=== PATIENT | male | born 1930 | race Caucasian/White ===

== ENCOUNTER 2016-12-07 18:31 | Emergency (ER) | payer MEDICARE, BC ==
[2016-12-07] MEDS: [UNRECOGNIZED DRUG - OTHER] TOP PRN (18:55)
[2016-12-07] MEDS: POTASSIUM NITRATE TOP PRN (18:55)
[2016-12-07 19:17] VITALS: BP 158/75; PULSE 105; RESP 20; TEMP 98.6; O2SAT 96
== END 2016-12-07 19:45 | DRG 151 ==
LOC: ED 18:31
DX: R04.0 Epistaxis (principal)
CPT/HCPCS: 30901; 99282

== ENCOUNTER 2017-07-13 18:01 | Emergency (ER) | payer MEDICARE ==
[2017-07-13 18:12] VITALS: TEMP 97.7
[2017-07-13] MEDS ORDERED: SODIUM CHLORIDE 0.9% 1000ML 1,000 ML IV ONE (18:32)
[2017-07-13 18:49] LABS: CALCIUM 8.7 mg/dl (8.5-10.1); POTASSIUM 4.1 mMol/L (3.5-5.1)
[2017-07-13 18:50] LABS: BASOPHILS % (AUTO) 1 % (0-3); EOSINOPHILS % (AUTO) 1 % (0-9); HEMATOCRIT 37 % (39-53); MEAN CORPUSCULAR HGB CONC 36.5 gm/dl (32.0-36.0); MEAN CORPUSCULAR VOLUME 92 fL (80-100); MONOCYTES % (AUTO) 8.4 % (0-12); NEUTROPHILS % (AUTO) 70.5 % (37-80)
[2017-07-13 20:37] VITALS: BP 122/67; PULSE 67; RESP 22; O2SAT 99
== END 2017-07-13 19:55 | DRG 605 ==
LOC: ED 18:01
DX: S00.03XA Contusion of scalp, initial encounter (principal); G44.219 Episodic tension-type headache, not intractable; W06.XXXA Fall from bed, initial encounter
CPT/HCPCS: 70450; 72125; 80048; 85025; 85610; 99284

== ENCOUNTER 2017-08-29 13:19 | Emergency (ER) | payer MEDICARE, OTHER ==
[2017-08-29 13:36] VITALS: TEMP 97
[2017-08-29] MEDS ORDERED: SODIUM CHLORIDE 0.9% 1000ML 1,000 ML IV ONE (14:01)
[2017-08-29 14:38] LABS: BASOPHILS % (AUTO) 1 % (0-3); EOSINOPHILS % (AUTO) 2 % (0-9); HEMATOCRIT 32 % (39-53); MEAN CORPUSCULAR HGB CONC 34.4 gm/dl (32.0-36.0); MONOCYTES % (AUTO) 9.5 % (0-12); NEUTROPHILS % (AUTO) 72.8 % (37-80)
[2017-08-29] MEDS ORDERED: SODIUM CHLORIDE 0.9% FLUSH 10 ML SOL IV PRN (14:43)
[2017-08-29 14:44] LABS: ALBUMIN 3.1 gm/dl (3.4-5.0); CALCIUM 8.9 mg/dl (8.5-10.1)
[2017-08-29 14:54] LABS: POTASSIUM 4.6 mMol/L (3.5-5.1)
[2017-08-29 14:56] LABS: MEAN CORPUSCULAR VOLUME 99 fL (80-100)
[2017-08-29 14:57] LABS: ANISOCYTOSIS SLIGHT AMT
[2017-08-29 15:57] LABS: APPEARANCE,URINE Cloudy; BILIRUBIN,URINE NEGATIVE (NEGATIVE); COLOR,URINE Yellow; GLUCOSE, URINE (UA) NEGATIVE (NEGATIVE); KETONES,URINE TRACE (NEGATIVE); LEUKOCYTE ESTERASE ,URINE 3+ (NEGATIVE); NITRATE,URINE NEGATIVE (NEGATIVE); OCCULT BLOOD,URINE TRACE INTACT (NEG-TRACE); UROBILINOGEN,URINE 0.2 (0.2-1.0 EU)
[2017-08-29 16:45] VITALS: RESP 20; O2SAT 95
[2017-08-29 16:51] LABS: WBC,URINE 90-100 (0-5AV/HPF)
[2017-08-29 17:41] VITALS: BP 113/66; PULSE 112
== END 2017-08-29 16:41 | disposition short-term general hospital (02) | DRG 309 ==
LOC: ED 13:19
DX: I49.5 Sick sinus syndrome (principal); J81.1 Chronic pulmonary edema; R04.0 Epistaxis
CPT/HCPCS: 36415; 71010; 80053; 81001; 85025; 87077; 87088; 87186; 93005; 99285

== ENCOUNTER 2017-09-13 18:52 | Emergency (ER) | payer MEDICARE, OTHER ==
[2017-09-13 19:02] VITALS: TEMP 97.4
[2017-09-13] MEDS ORDERED: ALBUTEROL/IPRATROPIUM 1 VIAL SOL INH ONE (19:17)
[2017-09-13] MEDS ORDERED: ALBUTEROL/IPRATROPIUM 1 VIAL SOL ONE (19:19)
[2017-09-13 19:31] LABS: BASOPHILS % (AUTO) 1 % (0-3); EOSINOPHILS % (AUTO) 1 % (0-9); HEMATOCRIT 26 % (39-53); MEAN CORPUSCULAR HGB CONC 34.7 gm/dl (32.0-36.0); MONOCYTES % (AUTO) 6.6 % (0-12)
[2017-09-13 19:39] LABS: CALCIUM 8.8 mg/dl (8.5-10.1); POTASSIUM 4.5 mMol/L (3.5-5.1)
[2017-09-13 19:41] LABS: MEAN CORPUSCULAR VOLUME 99 fL (80-100)
[2017-09-13 19:53] LABS: ABG PH 7.43 (7.35-7.45)
[2017-09-13 20:02] LABS: ANISOCYTOSIS SLIGHT AMT
[2017-09-13] MEDS ORDERED: LEVOFLOXACIN 25 MG/ML 750 MG in SODIUM CHLORIDE 0.9% 250 ML 150 ML IV ONE (20:10)
[2017-09-13] MEDS ORDERED: LEVOFLOXACIN 25 MG/ML SOL IV ONE (20:11)
[2017-09-13 22:16] VITALS: BP 108/47; PULSE 132; RESP 22; O2SAT 91
== END 2017-09-13 21:47 | disposition short-term general hospital (02) | DRG 206 ==
LOC: ED 18:52
DX: R09.02 Hypoxemia (principal); J84.9 Interstitial pulmonary disease, unspecified; R79.89 Other specified abnormal findings of blood chemistry; R93.1 Abnormal findings on diagnostic imaging of heart and coronary circulation; R05 Cough; I48.91 Unspecified atrial fibrillation
CPT/HCPCS: 71010; 80048; 82803; 85025; 87430; 87804; 99291; J1956; J7620

== ENCOUNTER 2017-09-23 07:54 | Emergency (ER) | payer MEDICARE, OTHER ==
[2017-09-23] MEDS: SODIUM CHLORIDE 0.9% FLUSH 10 ML SOL IV PRN ×2 (08:02→08:18)
[2017-09-23 08:17] LABS: BASOPHILS % (AUTO) 1 % (0-3); EOSINOPHILS % (AUTO) 0 % (0-9); HEMATOCRIT 30 % (39-53); MEAN CORPUSCULAR HGB CONC 35.4 gm/dl (32.0-36.0); MEAN CORPUSCULAR VOLUME 95 fL (80-100); MONOCYTES % (AUTO) 10.2 % (0-12); NEUTROPHILS % (AUTO) 82.5 % (37-80)
[2017-09-23 08:33] LABS: CALCIUM 8.8 mg/dl (8.5-10.1); POTASSIUM 3.4 mMol/L (3.5-5.1)
[2017-09-23] MEDS ORDERED: DEXTROSE 50% 1 VIAL SOL IV ONE ×2 (08:41)
[2017-09-23 08:44] LABS: APPEARANCE,URINE Clear; BILIRUBIN,URINE NEGATIVE (NEGATIVE); COLOR,URINE Yellow; GLUCOSE, URINE (UA) NEGATIVE (NEGATIVE); KETONES,URINE NEGATIVE (NEGATIVE); LEUKOCYTE ESTERASE ,URINE NEGATIVE (NEGATIVE); NITRATE,URINE NEGATIVE (NEGATIVE); OCCULT BLOOD,URINE TRACE INTACT (NEG-TRACE); PH,URINE 5.5; UROBILINOGEN,URINE 0.2 (0.2-1.0 EU)
[2017-09-23 08:45] LABS: ABG PH 7.41 (7.35-7.45)
[2017-09-23] MEDS ORDERED: ALTEPLASE, RECOMBINANT 50 MG PDS IV ONE ×3 (08:49→09:03)
[2017-09-23 08:59] LABS: RBC,URINE 0-2 (0-3AV/HPF); WBC,URINE 0-2 (0-5AV/HPF)
[2017-09-23] MEDS ORDERED: ETOMIDATE 2 MG/ML SOL IV ONE (09:00)
[2017-09-23] MEDS ORDERED: ROCURONIUM BROMIDE 10 MG/ML SOL IV ONE (09:00)
[2017-09-23] MEDS ORDERED: SODIUM CHLORIDE 0.9% 50 ML 50 ML IV SCH (09:15)
[2017-09-23 10:16] VITALS: PULSE 102; RESP 20; O2SAT 96
[2017-09-23 10:27] VITALS: BP 113/51; TEMP 95.9
== END 2017-09-23 09:45 | disposition short-term general hospital (02) | DRG 64 ==
LOC: ED 07:54
DX: I63.9 Cerebral infarction, unspecified (principal); R40.2342 Coma scale, best motor response, flexion withdrawal, at arrival to emergency department; R40.2122 Coma scale, eyes open, to pain, at arrival to emergency department; R40.2222 Coma scale, best verbal response, incomprehensible words, at arrival to emergency department; G81.91 Hemiplegia, unspecified affecting right dominant side; R47.01 Aphasia; H53.469 Homonymous bilateral field defects, unspecified side; R29.722 NIHSS score 22
CPT/HCPCS: 36415; 36600; 70450; 80048; 81001; 82803; 85025; 85610; 85730; 93005; 99291; J2997

== ENCOUNTER 2017-10-12 18:45 | Inpatient (IN) | payer MEDICARE, OTHER ==
[2017-10-12] MEDS: SODIUM CHLORIDE 0.9% FLUSH 10 ML SOL IV PRN (19:15)
[2017-10-12 19:24] LABS: BASOPHILS % (AUTO) 2 % (0-3); EOSINOPHILS % (AUTO) 0 % (0-9); HEMATOCRIT 27 % (39-53); MEAN CORPUSCULAR HGB CONC 34.2 gm/dl (32.0-36.0); MEAN CORPUSCULAR VOLUME 94 fL (80-100); MONOCYTES % (AUTO) 8.1 % (0-12); NEUTROPHILS % (AUTO) 77.6 % (37-80)
[2017-10-12 19:28] LABS: CALCIUM 8.2 mg/dl (8.5-10.1)
[2017-10-12] MEDS ORDERED: VANCOMYCIN HYDROCHLORIDE 500 MG PDS IV ONE (19:30)
[2017-10-12] MEDS ORDERED: VANCOMYCIN HCL 500 MG PDS 1,000 MG in SODIUM CHLORIDE 0.9% 250 ML 250 ML IV ONE (19:30)
[2017-10-12] MEDS ORDERED: PIPERACILLIN/TAZOBACT 3.375 GM PDS IV ONE (19:32)
[2017-10-12] MEDS ORDERED: ALUMINUM/MAGNESIUM 30 ML SUS PO PRN (20:28)
[2017-10-12] MEDS ORDERED: DM/GUAIFENESIN SYRUP 10 ML SYRP PO PRN (20:28)
[2017-10-12] MEDS: PIPERACILLIN/TAZOBACT 3.375 GM 3.375 GM in SODIUM CHLORIDE 0.9% 100 ML 100 ML IV SCH (21:13)
[2017-10-12] MEDS: GABAPENTIN 300 MG CAP PO SCH (21:22)
[2017-10-12] MEDS: LISINOPRIL 20 MG TAB PO SCH (21:22)
[2017-10-13] MEDS ORDERED: SODIUM CHLORIDE 0.9% 100 ML 100 ML IV ONE ×2 (03:17→22:37)
[2017-10-13] MEDS ORDERED: PIPERACILLIN/TAZOBACT 3.375 GM PDS IV ONE ×4 (03:17→22:37)
[2017-10-13] MEDS: PIPERACILLIN/TAZOBACT 3.375 GM 3.375 GM in SODIUM CHLORIDE 0.9% 100 ML 100 ML IV SCH ×3 (03:28→17:25)
[2017-10-13] MEDS: SODIUM CHLORIDE 0.9% FLUSH 10 ML SOL IV PRN ×3 (03:30→18:37)
[2017-10-13] MEDS: ACETAMINOPHEN 500 MG 500 MG TAB PO PRN ×2 (04:26→18:47)
[2017-10-13] MEDS: PANTOPRAZOLE SODIUM 40 MG ECT PO SCH (06:45)
[2017-10-13] MEDS ORDERED: OMEPRAZOLE 20 MG CAPSULE PO SCH (07:00)
[2017-10-13] MEDS ORDERED: VANCOMYCIN HCL 500 MG PDS 1,000 MG in SODIUM CHLORIDE 0.9% 250 ML 250 ML IV SCH (08:45)
[2017-10-13] MEDS ORDERED: PHARMACOKINETICS 1 MISC PRN (08:46)
[2017-10-13] MEDS ORDERED: ACETAMINOPHEN 500 MG 500 MG TAB PO SCH (09:00)
[2017-10-13] MEDS ORDERED: FUROSEMIDE 20 MG TAB PO SCH (09:00)
[2017-10-13 09:25] LABS: CALCIUM 7.6 mg/dl (8.5-10.1); POTASSIUM 4.1 mMol/L (3.5-5.1)
[2017-10-13] MEDS ORDERED: VANCOMYCIN HYDROCHLORIDE 500 MG PDS IV ONE (09:44)
[2017-10-13] MEDS: DILTIAZEM ER 120 MG C24 PO SCH (09:46)
[2017-10-13] MEDS: MULTIVITAMIN2 1 EA TAB PO SCH (09:46)
[2017-10-13] MEDS: FUROSEMIDE 40 MG TAB PO SCH (09:46)
[2017-10-13] MEDS: GABAPENTIN 300 MG CAP PO SCH ×3 (09:46→21:57)
[2017-10-13] MEDS: CALCIUM CARBONATE 500 MG TAB PO SCH ×2 (09:46→21:57)
[2017-10-13] MEDS: ASCORBIC ACID 500 MG TAB PO SCH (09:46)
[2017-10-13] MEDS: FERROUS SULFATE 325 MG TAB PO SCH (09:47)
[2017-10-13] MEDS: CHOLECALCIFEROL 1,000 IU TAB PO SCH (09:47)
[2017-10-13] MEDS: GLIMEPIRIDE 2 MG TAB PO SCH (09:47)
[2017-10-13] MEDS: PSYLLIUM 3.6 GM/1 TBS PDR PO SCH (09:48)
[2017-10-13] MEDS: FLUTICASONE PROPIONATE SPR NAS SCH ×2 (09:48→21:56)
[2017-10-13] MEDS: DOCUSATE SODIUM 100 MG SGL PO SCH (09:52)
[2017-10-13] MEDS: ENOXAPARIN 40 MG SOL SC SCH (09:52)
[2017-10-13] MEDS: BUPROPION XL 300 MG T24 PO SCH (12:18)
[2017-10-13] MEDS ORDERED: TRAMADOL HYDROCHLORIDE 50 MG TAB ONE (14:39)
[2017-10-13] MEDS: METOPROLOL SUCCINATE 50 MG ER TAB PO SCH (17:58)
[2017-10-13] MEDS: PIPERACILLIN/TAZOBACT 3.375 GM 2.25 GM in SODIUM CHLORIDE 0.9% 100 ML 100 ML IV SCH ×2 (18:30→23:17)
[2017-10-13] MEDS: LISINOPRIL 20 MG TAB PO SCH (21:58)
[2017-10-14] MEDS: ACETAMINOPHEN 500 MG 500 MG TAB PO PRN (02:50)
[2017-10-14] MEDS ORDERED: PIPERACILLIN/TAZOBACT 3.375 GM PDS IV ONE ×4 (04:54→19:30)
[2017-10-14] MEDS: PIPERACILLIN/TAZOBACT 3.375 GM 2.25 GM in SODIUM CHLORIDE 0.9% 100 ML 100 ML IV SCH ×3 (05:10→19:39)
[2017-10-14] MEDS: SODIUM CHLORIDE 0.9% FLUSH 10 ML SOL IV PRN (05:10)
[2017-10-14] MEDS: PANTOPRAZOLE SODIUM 40 MG ECT PO SCH (06:27)
[2017-10-14 07:17] LABS: CALCIUM 7.6 mg/dl (8.5-10.1); POTASSIUM 3.5 mMol/L (3.5-5.1)
[2017-10-14 07:27] LABS: BASOPHILS % (AUTO) 1 % (0-3); EOSINOPHILS % (AUTO) 1 % (0-9); HEMATOCRIT 24 % (39-53); MEAN CORPUSCULAR HGB CONC 35.7 gm/dl (32.0-36.0); MEAN CORPUSCULAR VOLUME 91 fL (80-100); MONOCYTES % (AUTO) 7.3 % (0-12); NEUTROPHILS % (AUTO) 81.5 % (37-80)
[2017-10-14] MEDS: FLUTICASONE PROPIONATE SPR NAS SCH ×2 (09:55→20:25)
[2017-10-14] MEDS: GLIMEPIRIDE 2 MG TAB PO SCH (09:55)
[2017-10-14] MEDS: CALCIUM CARBONATE 500 MG TAB PO SCH ×2 (09:56→20:25)
[2017-10-14] MEDS: PSYLLIUM 3.6 GM/1 TBS PDR PO SCH (09:56)
[2017-10-14] MEDS: ASCORBIC ACID 500 MG TAB PO SCH (09:56)
[2017-10-14] MEDS: MULTIVITAMIN2 1 EA TAB PO SCH (09:56)
[2017-10-14] MEDS: GABAPENTIN 300 MG CAP PO SCH ×3 (09:56→20:25)
[2017-10-14] MEDS: CHOLECALCIFEROL 1,000 IU TAB PO SCH (09:56)
[2017-10-14] MEDS: DILTIAZEM ER 120 MG C24 PO SCH (09:57)
[2017-10-14] MEDS: FERROUS SULFATE 325 MG TAB PO SCH (09:57)
[2017-10-14] MEDS: BUPROPION XL 300 MG T24 PO SCH (09:57)
[2017-10-14] MEDS ORDERED: VANCOMYCIN HCL 500 MG PDS 1,500 MG in SODIUM CHLORIDE 0.9% 250 ML 250 ML IV SCH (10:00)
[2017-10-14] MEDS: ENOXAPARIN 40 MG SOL SC SCH (10:03)
[2017-10-14] MEDS: FUROSEMIDE 40 MG TAB PO SCH (10:03)
[2017-10-14] MEDS: DOCUSATE SODIUM 100 MG SGL PO SCH (10:03)
[2017-10-14] MEDS ORDERED: VANCOMYCIN HYDROCHLORIDE 500 MG PDS IV ONE (10:54)
[2017-10-14] MEDS ORDERED: SODIUM CHLORIDE 0.9% 250 ML 250 ML IV ONE (10:54)
[2017-10-14] MEDS ORDERED: SODIUM CHLORIDE 0.9% 100 ML 100 ML IV ONE ×3 (12:43→19:32)
[2017-10-14] MEDS: METOPROLOL SUCCINATE 50 MG ER TAB PO SCH (17:14)
[2017-10-14] MEDS: LISINOPRIL 20 MG TAB PO SCH (20:25)
[2017-10-15] MEDS ORDERED: PIPERACILLIN/TAZOBACT 3.375 GM PDS IV ONE ×2 (00:43→06:22)
[2017-10-15] MEDS ORDERED: SODIUM CHLORIDE 0.9% 100 ML 100 ML IV ONE ×2 (00:43→06:22)
[2017-10-15] MEDS: PIPERACILLIN/TAZOBACT 3.375 GM 2.25 GM in SODIUM CHLORIDE 0.9% 100 ML 100 ML IV SCH ×2 (01:01→06:40)
[2017-10-15] MEDS: ACETAMINOPHEN 500 MG 500 MG TAB PO PRN ×2 (02:14→12:25)
[2017-10-15] MEDS: PANTOPRAZOLE SODIUM 40 MG ECT PO SCH (06:36)
[2017-10-15] MEDS: SODIUM CHLORIDE 0.9% FLUSH 10 ML SOL IV PRN (06:37)
[2017-10-15 07:20] LABS: BASOPHILS % (AUTO) 1 % (0-3); EOSINOPHILS % (AUTO) 0 % (0-9); HEMATOCRIT 24 % (39-53); MEAN CORPUSCULAR HGB CONC 34.5 gm/dl (32.0-36.0); MEAN CORPUSCULAR VOLUME 92 fL (80-100); MONOCYTES % (AUTO) 8.9 % (0-12); NEUTROPHILS % (AUTO) 78.1 % (37-80)
[2017-10-15 07:38] LABS: ALBUMIN 2.4 gm/dl (3.4-5.0); CALCIUM 7.9 mg/dl (8.5-10.1); POTASSIUM 3.6 mMol/L (3.5-5.1)
[2017-10-15 09:33] VITALS: RESP 18
[2017-10-15] MEDS: GLIMEPIRIDE 2 MG TAB PO SCH (10:04)
[2017-10-15] MEDS: FUROSEMIDE 40 MG TAB PO SCH (10:05)
[2017-10-15] MEDS: FLUTICASONE PROPIONATE SPR NAS SCH ×2 (10:05→20:36)
[2017-10-15] MEDS: LEVOFLOXACIN 500 MG TAB PO SCH (10:06)
[2017-10-15] MEDS: CALCIUM CARBONATE 500 MG TAB PO SCH ×2 (10:07→20:35)
[2017-10-15] MEDS: CHOLECALCIFEROL 1,000 IU TAB PO SCH (10:07)
[2017-10-15] MEDS: DILTIAZEM ER 120 MG C24 PO SCH (10:07)
[2017-10-15] MEDS: GABAPENTIN 300 MG CAP PO SCH ×3 (10:08→20:36)
[2017-10-15] MEDS: PSYLLIUM 3.6 GM/1 TBS PDR PO SCH (10:08)
[2017-10-15] MEDS: MULTIVITAMIN2 1 EA TAB PO SCH (10:08)
[2017-10-15] MEDS: DOCUSATE SODIUM 100 MG SGL PO SCH (10:08)
[2017-10-15] MEDS: FERROUS SULFATE 325 MG TAB PO SCH (10:08)
[2017-10-15] MEDS: ENOXAPARIN 40 MG SOL SC SCH (10:09)
[2017-10-15] MEDS: ASCORBIC ACID 500 MG TAB PO SCH (10:09)
[2017-10-15] MEDS: BUPROPION XL 300 MG T24 PO SCH (10:10)
[2017-10-15] MEDS: APAP/HYDROCODONE 325/5 TAB PO PRN ×2 (14:19→20:36)
[2017-10-15] MEDS: METOPROLOL SUCCINATE 50 MG ER TAB PO SCH (16:39)
[2017-10-15] MEDS: LISINOPRIL 20 MG TAB PO SCH (20:38)
[2017-10-16] MEDS: PANTOPRAZOLE SODIUM 40 MG ECT PO SCH (06:13)
[2017-10-16 07:57] LABS: BASOPHILS % (AUTO) 1 % (0-3); EOSINOPHILS % (AUTO) 1 % (0-9); HEMATOCRIT 25 % (39-53); MEAN CORPUSCULAR VOLUME 92 fL (80-100); MONOCYTES % (AUTO) 9.7 % (0-12); NEUTROPHILS % (AUTO) 80.9 % (37-80)
[2017-10-16 08:19] LABS: CALCIUM 8.3 mg/dl (8.5-10.1); POTASSIUM 3.8 mMol/L (3.5-5.1)
[2017-10-16] MEDS: GLIMEPIRIDE 2 MG TAB PO SCH (09:14)
[2017-10-16] MEDS: ENOXAPARIN 40 MG SOL SC SCH (09:24)
[2017-10-16] MEDS: DOCUSATE SODIUM 100 MG SGL PO SCH (09:27)
[2017-10-16] MEDS: FERROUS SULFATE 325 MG TAB PO SCH (09:27)
[2017-10-16] MEDS: DILTIAZEM ER 120 MG C24 PO SCH (09:27)
[2017-10-16] MEDS: FLUTICASONE PROPIONATE SPR NAS SCH (09:27)
[2017-10-16] MEDS: FUROSEMIDE 40 MG TAB PO SCH (09:28)
[2017-10-16] MEDS: PSYLLIUM 3.6 GM/1 TBS PDR PO SCH (09:29)
[2017-10-16] MEDS: MULTIVITAMIN2 1 EA TAB PO SCH (09:31)
[2017-10-16] MEDS: GABAPENTIN 300 MG CAP PO SCH (09:31)
[2017-10-16] MEDS: CALCIUM CARBONATE 500 MG TAB PO SCH (09:31)
[2017-10-16] MEDS: ASCORBIC ACID 500 MG TAB PO SCH (09:32)
[2017-10-16] MEDS: CHOLECALCIFEROL 1,000 IU TAB PO SCH (09:32)
[2017-10-16] MEDS: BUPROPION XL 300 MG T24 PO SCH (09:32)
[2017-10-16] MEDS: LEVOFLOXACIN 500 MG TAB PO SCH (09:32)
[2017-10-16] MEDS: APAP/HYDROCODONE 325/5 TAB PO PRN (09:33)
[2017-10-16 10:25] VITALS: BP 120/70; PULSE 104; TEMP 98.1; O2SAT 93
[2017-10-16 14:56] LABS: ABO O; RH TYPE Positive
[2017-10-17 08:16] LABS: ANTIBODY SCREEN Positive
[2017-10-17 08:17] LABS: UNIT TYPE O POSITIVE
== END 2017-10-16 12:25 | DRG 603 ==
LOC: ED 18:45 → UNDOADMIN 20:20 → ACUTE CARE 20:20
PROVIDERS: ADMIT Family Medicine; ATTEND Family Medicine
DX: L03.116 Cellulitis of left lower limb (principal); I96 Gangrene, not elsewhere classified; E11.621 Type 2 diabetes mellitus with foot ulcer; E11.22 Type 2 diabetes mellitus with diabetic chronic kidney disease; L97.311 Non-pressure chronic ulcer of right ankle limited to breakdown of skin; N18.3 Chronic kidney disease, stage 3 (moderate); L97.321 Non-pressure chronic ulcer of left ankle limited to breakdown of skin; L97.429 Non-pressure chronic ulcer of left heel and midfoot with unspecified severity; E11.52 Type 2 diabetes mellitus with diabetic peripheral angiopathy with gangrene; L97.821 Non-pressure chronic ulcer of other part of left lower leg limited to breakdown of skin; L97.412 Non-pressure chronic ulcer of right heel and midfoot with fat layer exposed; L97.521 Non-pressure chronic ulcer of other part of left foot limited to breakdown of skin; L84 Corns and callosities; L97.529 Non-pressure chronic ulcer of other part of left foot with unspecified severity; I77.89 Other specified disorders of arteries and arterioles; I73.9 Peripheral vascular disease, unspecified
CPT/HCPCS: 36415; 75635; 80048; 80053; 82962; 85025; 86850; 86900; 86901; 86922; 96365; 97597; 99070; 99221; 99232; 99284; J1650; J2543; J3370; Q9967; A4450; A6232; A6402; A9270; A9270-GY; Q4137

== ENCOUNTER 2017-11-02 16:00 | Emergency (ER) | payer MEDICARE, OTHER ==
[2017-11-02 16:28] LABS: BASOPHILS % (AUTO) 2 % (0-3); EOSINOPHILS % (AUTO) 0 % (0-9); HEMATOCRIT 23 % (39-53); MEAN CORPUSCULAR HGB CONC 34.1 gm/dl (32.0-36.0); MEAN CORPUSCULAR VOLUME 87 fL (80-100); MONOCYTES % (AUTO) 10.1 % (0-12); NEUTROPHILS % (AUTO) 73.1 % (37-80)
[2017-11-02 16:29] VITALS: RESP 20
[2017-11-02 16:37] LABS: CALCIUM 7.5 mg/dl (8.5-10.1); POTASSIUM 3.7 mMol/L (3.5-5.1)
[2017-11-02] MEDS ORDERED: HYDROMORPHONE HYDROCHLORIDE 2 MG TAB PO ONE ×2 (16:39→16:45)
[2017-11-02 16:56] VITALS: TEMP 97.6
[2017-11-02 17:27] VITALS: BP 132/74; PULSE 123; O2SAT 88
== END 2017-11-02 17:22 | DRG 556 ==
LOC: ED 16:00
DX: M79.89 Other specified soft tissue disorders (principal); D64.9 Anemia, unspecified; Z89.612 Acquired absence of left leg above knee; R20.0 Anesthesia of skin
CPT/HCPCS: 36415; 80048; 85025; 99282; 99283; A9270-GY

== ENCOUNTER 2017-12-20 17:32 | Emergency (ER) | payer MEDICARE, OTHER ==
[2017-12-20 17:53] VITALS: TEMP 95.2
[2017-12-20] MEDS ORDERED: NOREPINEPHRINE BITARTRATE 4 MG/4 ML SOL IV ONE (18:10)
[2017-12-20] MEDS ORDERED: NOREPINEPHRINE 4 MG/4 ML 4 MG in DEXTROSE 500 ML 500 ML IV SCH (18:15)
[2017-12-20] MEDS ORDERED: SODIUM CHLORIDE 0.9% FLUSH 10 ML SOL IV PRN (18:17)
[2017-12-20 18:21] LABS: BASOPHILS % (AUTO) 3 % (0-3); EOSINOPHILS % (AUTO) 0 % (0-9); HEMATOCRIT 26 % (39-53); MEAN CORPUSCULAR HGB CONC 35.1 gm/dl (32.0-36.0); MEAN CORPUSCULAR VOLUME 85 fL (80-100); MONOCYTES % (AUTO) 7.1 % (0-12); NEUTROPHILS % (AUTO) 81.7 % (37-80)
[2017-12-20 18:30] LABS: CALCIUM 7.9 mg/dl (8.5-10.1); CREATININE 1.35 mg/dl (0.80-1.30); POTASSIUM 3.1 mMol/L (3.5-5.1)
[2017-12-20] MEDS ORDERED: DEXTROSE 50% 1 VIAL SOL IV ONE ×2 (18:31→18:36)
[2017-12-20 18:35] VITALS: BP 133/71; PULSE 90; RESP 21; O2SAT 96
[2017-12-20] MEDS ORDERED: HEPARIN SODIUM 5000 U/ML SOL ONE ×2 (18:37→18:41)
[2017-12-20] MEDS ORDERED: HEPARIN SODIUM 5000 U/ML 25,000 U in DEXTROSE 250 ML 250 ML IV PRN (18:37)
[2017-12-20 18:39] LABS: APPEARANCE,URINE Slightly Cloudy; BILIRUBIN,URINE NEGATIVE (NEGATIVE); COLOR,URINE Yellow; GLUCOSE, URINE (UA) NEGATIVE (NEGATIVE); KETONES,URINE NEGATIVE (NEGATIVE); LEUKOCYTE ESTERASE ,URINE 3+ (NEGATIVE); NITRATE,URINE NEGATIVE (NEGATIVE); OCCULT BLOOD,URINE 1+ (NEG-TRACE); UROBILINOGEN,URINE 0.2 (0.2-1.0 EU)
[2017-12-20 18:45] LABS: RBC,URINE 0-2 (0-3AV/HPF); WBC,URINE TNTC (0-5AV/HPF)
== END 2017-12-20 18:45 | disposition short-term general hospital (02) | DRG 66 ==
LOC: ED 17:32
DX: I63.9 Cerebral infarction, unspecified (principal); I48.91 Unspecified atrial fibrillation; E11.9 Type 2 diabetes mellitus without complications; F03.90 Unspecified dementia, unspecified severity, without behavioral disturbance, psychotic disturbance, mood disturbance, and anxiety; F91.8 Other conduct disorders; R47.81 Slurred speech; R29.705 NIHSS score 5; R40.2362 Coma scale, best motor response, obeys commands, at arrival to emergency department; R40.2142 Coma scale, eyes open, spontaneous, at arrival to emergency department; R40.2242 Coma scale, best verbal response, confused conversation, at arrival to emergency department; F31.9 Bipolar disorder, unspecified
CPT/HCPCS: 36415; 70450; 80048; 81001; 82962; 85025; 85610; 85730; 99291; J1644; J3490

== ENCOUNTER 2017-12-26 16:01 | Emergency (ER) | payer MEDICARE, OTHER ==
[2017-12-26 16:20] VITALS: RESP 18; TEMP 97.2
[2017-12-26 16:48] LABS: BASOPHILS % (AUTO) 1 % (0-3); EOSINOPHILS % (AUTO) 0 % (0-9); HEMATOCRIT 23 % (39-53); LYMPHOCYTES % (AUTO) 8.25 % (10-50); MEAN CORPUSCULAR HEMOGLOBIN 29.3 pg (27.0-32.0); MEAN CORPUSCULAR HGB CONC 34.4 gm/dl (32.0-36.0); MEAN CORPUSCULAR VOLUME 85 fL (80-100); MONOCYTES % (AUTO) 8.2 % (0-12); NEUTROPHILS % (AUTO) 82.3 % (37-80)
[2017-12-26 17:06] LABS: ALBUMIN 2.1 gm/dl (3.4-5.0); ALKALINE PHOSPHATASE 105 IU/L (46-116); ALT 36 IU/L (14-63); AST 19 IU/L (15-37); BILIRUBIN,TOTAL 0.3 mg/dl (0.2-1.0); BLOOD UREA NITROGEN 23 mg/dl (7-18); CALCIUM 7.8 mg/dl (8.5-10.1); CARBON DIOXIDE 27.9 mEq/L (21-32); CHLORIDE 94 mMol/L (98-107); GLUCOSE 196 mg/dl (74-106); POTASSIUM 4.1 mMol/L (3.5-5.1); SODIUM 131 mMol/L (136-145); TOTAL PROTEIN 6.6 gm/dl (6.4-8.2); TROP I < 0.017 ng/ml (0.000-0.056)
[2017-12-26 17:42] LABS: APPEARANCE,URINE Clear; BILIRUBIN,URINE NEGATIVE (NEGATIVE); COLOR,URINE Yellow; GLUCOSE, URINE (UA) NEGATIVE (NEGATIVE); KETONES,URINE NEGATIVE (NEGATIVE); LEUKOCYTE ESTERASE ,URINE NEGATIVE (NEGATIVE); NITRATE,URINE NEGATIVE (NEGATIVE); OCCULT BLOOD,URINE NEGATIVE (NEG-TRACE); PH,URINE 5.5; UROBILINOGEN,URINE 0.2 (0.2-1.0 EU)
[2017-12-26 17:53] LABS: RBC,URINE NEG (0-3AV/HPF); WBC,URINE 0-3 (0-5AV/HPF)
[2017-12-26 17:54] LABS: BACTERIA RARE (< 1+); CRYSTALS NEGATIVE (0-3 AVE/HPF); EPITHELIAL CELLS 0-2 (SQUAMOUS)
[2017-12-26 19:04] VITALS: BP 160/70; PULSE 79; O2SAT 92
== END 2017-12-26 18:48 | DRG 948 ==
LOC: ED 16:01
DX: R53.81 Other malaise (principal); R05 Cough; R53.83 Other fatigue; R93.1 Abnormal findings on diagnostic imaging of heart and coronary circulation
CPT/HCPCS: 36415; 71046; 80053; 81001; 83880; 84484; 85025; 99284

== ENCOUNTER 2018-06-02 09:11 | Emergency (ER) | payer MEDICARE, OTHER ==
[2018-06-02] MEDS ORDERED: DILTIAZEM 5 MG/ML SOL IV ONE ×5 (09:26→10:44)
[2018-06-02 09:36] LABS: BASOPHILS % (AUTO) 0 % (0-3); EOSINOPHILS % (AUTO) 1 % (0-9); HEMATOCRIT 34 % (39-53); HEMOGLOBIN 10.9 gm/dl (13.5-17.7); MEAN CORPUSCULAR HGB CONC 32.2 gm/dl (32.0-36.0); MEAN CORPUSCULAR VOLUME 84 fL (80-100); MONOCYTES % (AUTO) 7.8 % (0-12); NEUTROPHILS % (AUTO) 80.6 % (37-80)
[2018-06-02] MEDS ORDERED: ONDANSETRON HCL 4 MG/2 ML SOL IV ONE (09:44)
[2018-06-02] MEDS ORDERED: ONDANSETRON HCL 4 MG/2 ML SOL ONE (09:45)
[2018-06-02] MEDS ORDERED: SODIUM CHLORIDE 0.9% 1000ML 1,000 ML IV ONE (09:45)
[2018-06-02] MEDS ORDERED: DILTIAZEM ER 120 MG C24 PO ONE (09:52)
[2018-06-02] MEDS ORDERED: DILTIAZEM ER 120 MG C24 ONE (09:56)
[2018-06-02 10:02] LABS: ALBUMIN 2.5 gm/dl (3.4-5.0); BILIRUBIN,TOTAL 2.4 mg/dl (0.2-1.0); CALCIUM 8.5 mg/dl (8.5-10.1); CARBON DIOXIDE 25.9 mEq/L (21-32); CREATININE 0.72 mg/dl (0.80-1.30); POTASSIUM 3.5 mMol/L (3.5-5.1); TOTAL PROTEIN 7.2 gm/dl (6.4-8.2)
[2018-06-02] MEDS ORDERED: FUROSEMIDE 20mg SOL ONE (10:20)
[2018-06-02] MEDS ORDERED: FUROSEMIDE 20mg SOL IV ONE (10:20)
[2018-06-02] MEDS ORDERED: DILTIAZEM 5 MG/ML 125 MG in SODIUM CHLORIDE 0.9% 100 ML 100 ML IV SCH (10:30)
[2018-06-02 10:49] LABS: APPEARANCE,URINE Cloudy; BILIRUBIN,URINE 2+ (NEGATIVE); COLOR,URINE Amber; GLUCOSE, URINE (UA) NEGATIVE (NEGATIVE); KETONES,URINE TRACE (NEGATIVE); LEUKOCYTE ESTERASE ,URINE 3+ (NEGATIVE); NITRATE,URINE NEGATIVE (NEGATIVE); OCCULT BLOOD,URINE TRACE INTACT (NEG-TRACE); UROBILINOGEN,URINE >=8.0 (0.2-1.0 EU)
[2018-06-02 11:18] LABS: BACTERIA 2+ (< 1+); CRYSTALS 0-2 BILIRUBIN (0-3 AVE/HPF); ICTOTEST,URINE POSITIVE (NEGATIVE); WBC,URINE TNTC (0-5AV/HPF)
[2018-06-02 12:28] VITALS: TEMP 97.6
[2018-06-02] MEDS ORDERED: PIPERACILLIN/TAZOBACT 3.375 GM 3.375 GM in SODIUM CHLORIDE 0.9% 100 ML 100 ML IV ONE (12:38)
[2018-06-02] MEDS ORDERED: PIPERACILLIN/TAZOBACT 3.375 GM PDS IV ONE (12:53)
[2018-06-02 14:59] VITALS: BP 106/84; PULSE 96; RESP 18; O2SAT 97
== END 2018-06-02 14:28 | disposition short-term general hospital (02) | DRG 392 ==
LOC: ED 09:11
DX: R10.9 Unspecified abdominal pain (principal); R06.02 Shortness of breath; R06.00 Dyspnea, unspecified; I48.91 Unspecified atrial fibrillation; K81.9 Cholecystitis, unspecified; E11.9 Type 2 diabetes mellitus without complications
CPT/HCPCS: 36415; 71045; 80053; 81001; 82150; 82962; 83880; 84484; 85025; 87040; 87088; 93005; 96365; 96366; 96374; 96375; 99284; 99285; J1940; J2405; J2543; A9270-GY; J3490

== ENCOUNTER 2018-10-11 14:40 | Emergency (ER) | payer OTHER ==
[2018-10-11 15:01] VITALS: TEMP 96.7; O2SAT 98
[2018-10-11 15:12] LABS: BASOPHILS % (AUTO) 1 % (0-3); EOSINOPHILS % (AUTO) 2 % (0-9); HEMATOCRIT 26 % (39-53); HEMOGLOBIN 8.4 gm/dl (13.5-17.7); LYMPHOCYTES % (AUTO) 13.2 % (10-50); MEAN CORPUSCULAR HEMOGLOBIN 29.3 pg (27.0-32.0); MEAN CORPUSCULAR HGB CONC 32.1 gm/dl (32.0-36.0); MEAN CORPUSCULAR VOLUME 91 fL (80-100); MONOCYTES % (AUTO) 11.4 % (0-12); NEUTROPHILS % (AUTO) 72.5 % (37-80)
[2018-10-11 15:21] LABS: INR 1.14 (0.86-1.12)
[2018-10-11 16:11] VITALS: RESP 18
[2018-10-11 16:45] VITALS: BP 136/58; PULSE 83
== END 2018-10-11 16:45 | DRG 159 ==
LOC: ED 14:40 → SUPCPDRO 14:40 → ED 16:45
DX: K06.8 Other specified disorders of gingiva and edentulous alveolar ridge (principal); E11.9 Type 2 diabetes mellitus without complications; D64.9 Anemia, unspecified; I48.91 Unspecified atrial fibrillation
CPT/HCPCS: 36415; 85025; 85610; 99282; 99283

== ENCOUNTER 2018-10-25 09:34 | Emergency (ER) | payer OTHER ==
[2018-10-25 10:21] LABS: BASOPHILS % (AUTO) 1 % (0-3); EOSINOPHILS % (AUTO) 1 % (0-9); HEMATOCRIT 28 % (39-53); HEMOGLOBIN 9.2 gm/dl (13.5-17.7); LYMPHOCYTES % (AUTO) 8.2 % (10-50); MEAN CORPUSCULAR HEMOGLOBIN 29.7 pg (27.0-32.0); MEAN CORPUSCULAR HGB CONC 32.6 gm/dl (32.0-36.0); MEAN CORPUSCULAR VOLUME 91 fL (80-100); MONOCYTES % (AUTO) 9.9 % (0-12); NEUTROPHILS % (AUTO) 80.8 % (37-80)
[2018-10-25] MEDS ORDERED: SODIUM CHLORIDE 0.9% 1000ML 1,000 ML IV ONE ×2 (10:23→10:24)
[2018-10-25 10:25] LABS: INR 1.18 (0.86-1.12)
[2018-10-25] MEDS ORDERED: SODIUM CHLORIDE 0.9% FLUSH 10 ML SOL IV PRN (10:26)
[2018-10-25 10:27] LABS: ALBUMIN 2.6 gm/dl (3.4-5.0); BILIRUBIN,TOTAL 0.7 mg/dl (0.2-1.0); CALCIUM 8.1 mg/dl (8.5-10.1); CARBON DIOXIDE 25.8 mEq/L (21-32); CREATININE 1.26 mg/dl (0.80-1.30); POTASSIUM 5.1 mMol/L (3.5-5.1); TOTAL PROTEIN 6.7 gm/dl (6.4-8.2)
[2018-10-25 11:28] VITALS: TEMP 96.9
[2018-10-25 12:42] VITALS: BP 128/65; PULSE 107; RESP 15; O2SAT 99
[2018-10-25 13:23] LABS: APPEARANCE,URINE Cloudy; BILIRUBIN,URINE NEGATIVE (NEGATIVE); COLOR,URINE Yellow; GLUCOSE, URINE (UA) NEGATIVE (NEGATIVE); KETONES,URINE NEGATIVE (NEGATIVE); LEUKOCYTE ESTERASE ,URINE 3+ (NEGATIVE); NITRATE,URINE NEGATIVE (NEGATIVE); OCCULT BLOOD,URINE 2+ (NEG-TRACE); PH,URINE 5.5; UROBILINOGEN,URINE 0.2 (0.2-1.0 EU)
[2018-10-25 13:51] LABS: BACTERIA UNABLE (< 1+); CRYSTALS UNABLE (0-3 AVE/HPF); EPITHELIAL CELLS UNABLE (SQUAMOUS); RBC,URINE UNABLE (0-3AV/HPF); WBC,URINE TNTC (0-5AV/HPF)
[2018-10-25] MEDS ORDERED: CEFTRIAXONE 1 GM PDS 1 GM in SODIUM CHLORIDE 0.9% 50 ML 50 ML IV ONE (14:35)
[2018-10-25] MEDS ORDERED: CEFTRIAXONE 1 GM PDS ONE (14:36)
== END 2018-10-25 17:10 | DRG 690 ==
LOC: ED 09:34
DX: N30.00 Acute cystitis without hematuria (principal); M54.5 Low back pain; K04.99 Other diseases of pulp and periapical tissues; I48.91 Unspecified atrial fibrillation; I10 Essential (primary) hypertension; E11.9 Type 2 diabetes mellitus without complications
CPT/HCPCS: 71045; 74177; 80053; 81001; 85025; 85610; 85730; 87077; 87088; 87186; 96365; 96366; 99070; 99284; 99285; J0696; Q9967; A6232; A6402

== ENCOUNTER 2019-01-30 17:38 | Emergency (ER) | payer OTHER ==
[2019-01-30] MEDS ORDERED: SODIUM CHLORIDE 0.9% 1000ML 1,000 ML IV ONE ×2 (18:05→19:05)
[2019-01-30] MEDS ORDERED: SODIUM CHLORIDE 0.9% 1000ML 1,000 ML IV NR (18:15)
[2019-01-30 18:20] LABS: BASOPHILS % (AUTO) 1 % (0-3); EOSINOPHILS % (AUTO) 0 % (0-9); HEMATOCRIT 24 % (39-53); LYMPHOCYTES % (AUTO) 6.5 % (10-50); MEAN CORPUSCULAR HEMOGLOBIN 26.9 pg (27.0-32.0); MEAN CORPUSCULAR HGB CONC 32.6 gm/dl (32.0-36.0); MEAN CORPUSCULAR VOLUME 83 fL (80-100); MONOCYTES % (AUTO) 7.4 % (0-12); NEUTROPHILS % (AUTO) 84.8 % (37-80)
[2019-01-30 18:41] LABS: ALBUMIN 2.3 gm/dl (3.4-5.0); ALKALINE PHOSPHATASE 93 IU/L (46-116); ALT 11 IU/L (14-63); AST 11 IU/L (15-37); BILIRUBIN,TOTAL 0.6 mg/dl (0.2-1.0); BLOOD UREA NITROGEN 80 mg/dl (7-18); CALCIUM 7.9 mg/dl (8.5-10.1); CREATININE 2.89 mg/dl (0.80-1.30); GLUCOSE 141 mg/dl (74-106); SODIUM 129 mMol/L (136-145); TROP I < 0.017 ng/ml (0.000-0.056)
[2019-01-30 18:54] LABS: CARBON DIOXIDE 21.6 mEq/L (21-32); CHLORIDE 96 mMol/L (98-107)
[2019-01-30 19:20] VITALS: PULSE 78
[2019-01-30] MEDS ORDERED: NOREPINEPHRINE BITARTRATE 4 MG/4 ML SOL IV SCH (19:30)
[2019-01-30] MEDS ORDERED: NOREPINEPHRINE BITARTRATE 4 MG/4 ML SOL IV ONE (19:33)
[2019-01-30 19:41] LABS: CRP INFLAMMATORY 8.06 mg/dl (0.00-0.33)
[2019-01-30] MEDS ORDERED: VANCOMYCIN HCL 500 MG PDS 1,500 MG in SODIUM CHLORIDE 0.9% 250 ML 250 ML IV ONE (19:58)
[2019-01-30] MEDS ORDERED: PIPERACILLIN/TAZOBACT 3.375 GM 3.375 GM in SODIUM CHLORIDE 0.9% 100 ML 100 ML IV SCH (20:00)
[2019-01-30 20:05] LABS: LACTIC ACID 1.4 mMol/L (0.0-2.0)
[2019-01-30 20:10] LABS: APPEARANCE,URINE Turbid; BILIRUBIN,URINE NEGATIVE (NEGATIVE); COLOR,URINE Yellow; GLUCOSE, URINE (UA) NEGATIVE (NEGATIVE); KETONES,URINE NEGATIVE (NEGATIVE); LEUKOCYTE ESTERASE ,URINE 3+ (NEGATIVE); NITRATE,URINE NEGATIVE (NEGATIVE); OCCULT BLOOD,URINE 2+ (NEG-TRACE); PH,URINE 5.5; UROBILINOGEN,URINE 0.2 (0.2-1.0 EU)
[2019-01-30 20:22] VITALS: TEMP 97.2
[2019-01-30] MEDS ORDERED: VANCOMYCIN HYDROCHLORIDE 500 MG PDS IV ONE (20:23)
[2019-01-30 20:24] LABS: BACTERIA UNABLE (< 1+); CRYSTALS UNABLE (0-3 AVE/HPF); EPITHELIAL CELLS UNABLE (SQUAMOUS); RBC,URINE UNABLE (0-3AV/HPF); WBC,URINE PACKED (0-5AV/HPF)
[2019-01-30] MEDS ORDERED: CALCIUM GLUCONATE 100 MG/ML SOL IV SCH (20:45)
[2019-01-30 22:53] VITALS: BP 55/35; RESP 13; O2SAT 98
== END 2019-01-30 22:25 | disposition short-term general hospital (02) | DRG 884 ==
LOC: ED 17:38
DX: R40.4 Transient alteration of awareness (principal); N30.00 Acute cystitis without hematuria; I95.9 Hypotension, unspecified; I48.91 Unspecified atrial fibrillation; E11.9 Type 2 diabetes mellitus without complications
CPT/HCPCS: 36415; 70450; 71045; 71250; 74176; 80053; 81001; 83880; 84484; 85025; 85651; 87040; 87077; 87088; 87186; 93005; 96365; 96366; 96374; 99284; 99291; J2543; J3370; J3490

== ENCOUNTER 2019-03-19 09:43 | Emergency (ER) | payer OTHER ==
[2019-03-19 09:54] VITALS: RESP 16
[2019-03-19] MEDS ORDERED: SODIUM CHLORIDE 0.9% 1000ML 1,000 ML IV ONE ×2 (10:50→12:50)
[2019-03-19 10:52] LABS: BASOPHILS % (AUTO) 3 % (0-3); EOSINOPHILS % (AUTO) 1 % (0-9); HEMATOCRIT 24 % (39-53); HEMOGLOBIN 8.1 gm/dl (13.5-17.7); LYMPHOCYTES % (AUTO) 9.5 % (10-50); MEAN CORPUSCULAR HEMOGLOBIN 28.8 pg (27.0-32.0); MEAN CORPUSCULAR HGB CONC 33.2 gm/dl (32.0-36.0); MEAN CORPUSCULAR VOLUME 87 fL (80-100); MONOCYTES % (AUTO) 9.3 % (0-12); NEUTROPHILS % (AUTO) 77.6 % (37-80)
[2019-03-19 10:54] LABS: LACTIC ACID 1.8 mMol/L (0.0-2.0)
[2019-03-19 10:57] LABS: ALBUMIN 2.2 gm/dl (3.4-5.0); ALKALINE PHOSPHATASE 85 IU/L (46-116); ALT 16 IU/L (14-63); AST 13 IU/L (15-37); BILIRUBIN,TOTAL 0.4 mg/dl (0.2-1.0); BLOOD UREA NITROGEN 77 mg/dl (7-18); CALCIUM 8.2 mg/dl (8.5-10.1); CARBON DIOXIDE 22.8 mEq/L (21-32); CHLORIDE 96 mMol/L (98-107); CREATININE 3.06 mg/dl (0.80-1.30); GLUCOSE 167 mg/dl (74-106); SODIUM 128 mMol/L (136-145); TOTAL PROTEIN 7.6 gm/dl (6.4-8.2); TROP I < 0.017 ng/ml (0.000-0.056)
[2019-03-19 10:59] LABS: POTASSIUM 6.4 mMol/L (3.5-5.1)
[2019-03-19] MEDS ORDERED: SODIUM POLYSTYRENE SULFONATE 15 GM/60 ML SUS PO ONE (11:02)
[2019-03-19 11:06] VITALS: TEMP 96.8
[2019-03-19] MEDS ORDERED: SODIUM POLYSTYRENE SULFONATE 15 GM/60 ML SUS ONE (11:13)
[2019-03-19] MEDS ORDERED: CALCIUM GLUCONATE 10% 100 MG/ML SOL IV ONE (11:20)
[2019-03-19] MEDS ORDERED: CALCIUM GLUCONATE 100 MG/ML SOL IV SCH (11:30)
[2019-03-19 11:39] LABS: BILIRUBIN,URINE NEGATIVE (NEGATIVE); COLOR,URINE Yellow; GLUCOSE, URINE (UA) NEGATIVE (NEGATIVE); KETONES,URINE NEGATIVE (NEGATIVE); LEUKOCYTE ESTERASE ,URINE 3+ (NEGATIVE); NITRATE,URINE NEGATIVE (NEGATIVE); OCCULT BLOOD,URINE 2+ (NEG-TRACE); UROBILINOGEN,URINE 0.2 (0.2-1.0 EU)
[2019-03-19 11:43] LABS: APPEARANCE,URINE Turbid; EPITHELIAL CELLS UNABLE (SQUAMOUS); RBC,URINE UNABLE (0-3AV/HPF); WBC,URINE TNTC/PACKED (0-5AV/HPF)
[2019-03-19 11:44] LABS: BACTERIA 3+ (< 1+); CRYSTALS UNABLE (0-3 AVE/HPF)
[2019-03-19] MEDS ORDERED: CEFTRIAXONE 1 GM PDS 1 GM in SODIUM CHLORIDE 0.9% 50 ML 50 ML IV ONE (11:52)
[2019-03-19] MEDS ORDERED: CEFTRIAXONE 1 GM PDS ONE (11:55)
[2019-03-19 13:04] LABS: CALCIUM 8.5 mg/dl (8.5-10.1); CREATININE 3.03 mg/dl (0.80-1.30); POTASSIUM 5.5 mMol/L (3.5-5.1)
[2019-03-19 14:08] VITALS: BP 98/50; PULSE 72; O2SAT 99
== END 2019-03-19 14:00 | disposition short-term general hospital (02) | DRG 690 ==
LOC: ED 09:43
DX: N30.00 Acute cystitis without hematuria (principal); N28.9 Disorder of kidney and ureter, unspecified; E87.5 Hyperkalemia; E11.9 Type 2 diabetes mellitus without complications; I50.9 Heart failure, unspecified
CPT/HCPCS: 36415; 80048; 80053; 81001; 83605; 83880; 84484; 85025; 87077; 87088; 87186; 93005; 96365; 96366; 99070; 99283; 99285; J0610; J0696; A9270-GY

== ENCOUNTER 2019-05-22 13:49 | Inpatient (IN) | payer OTHER | END 2019-05-25 15:00 | LOC: ED 13:49 → ACUTE CARE 16:44 ==